=== PATIENT | male | born 1980 | race Caucasian/White ===

== ENCOUNTER → 2024-01-26 17:54 | Outpatient (REF) | payer BC, SELFPAY | LOC: MRI 17:54 | PROVIDERS: ATTENDING PHYSICIAN Nurse Practitioner Family; FAMILY PHYSICIAN Family Medicine | DX: E23.0 Hypopituitarism (principal) | CPT/HCPCS: 70553; A9575 ==

== ENCOUNTER 2025-05-08 06:16 | Day surgery (SDC) | payer BC, SELFPAY | END 2025-05-08 09:36 | disposition home or self-care (01) | LOC: GI 06:16 | PROVIDERS: ATTENDING PHYSICIAN Internal Medicine | DX: Z12.11 Encounter for screening for malignant neoplasm of colon (principal); K64.8 Other hemorrhoids | CPT/HCPCS: G0121 ==